=== PATIENT | male | born 1965 | race Caucasian/White ===

== ENCOUNTER → 2020-09-15 | Day surgery (SDC) | payer OTHER ==
[~2020-09-15] VITALS: Ht 185.4 cm; Wt 95.2 kg
[~2020-09-15] MED LIST: ASPIRIN EC81 MG PO; CARVEDILOL3.125 MG PO; LOPRESSOR25 MG PO; LORAZEPAM 0.5M0.5 MG PO; MVI; PROTONIX 40MG T40 MG PO; ZANTAC150 MG PO; ZOFRAN4 MG PO
[2020-09-15 06:46] LABS: HCT 47.4 % (42.0-52.0); HGB 16.8 g/dl (13.2-18.0); MCH 31.7 pg (25.0-31.0); MCHC 35.4 g/dL (32.0-36.0); MCV 89.4 fL (78.0-100.0); MPV 10.3 fL (6.0-9.5); RBC 5.3 M/uL (4.70-6.00); WBC 5.3 K/uL (4.0-10.5)
[2020-09-15 09:50] LABS: BUN/CREAT RATIO (CALC) 18.3 RATIO; CREATININE 0.93 mg/dL (0.67-1.17); POTASSIUM 4.1 mmol/L (3.5-5.1)
== END | disposition home or self-care (01) ==
LOC: FAS 06:10
PROVIDERS: Anesthesiology; Legal Medicine
DX: M67.441 Ganglion, right hand (principal); I10 Essential (primary) hypertension; K21.9 Gastro-esophageal reflux disease without esophagitis; F41.9 Anxiety disorder, unspecified; Z79.899 Other long term (current) drug therapy
CPT/HCPCS: 36415; 80048; J0690; J2250; J2704; J2795; J3010; J7120

== ENCOUNTER 2021-06-08 22:27 | Emergency (ER) | payer OTHER ==
[2021-06-08 23:49] LABS: EOSINOPHIL 0.3 % (0-5); HCT 48.1 % (42.0-52.0); HGB 16.9 g/dl (13.2-18.0); LYMPHOCYTE 51.8 % (15-48); MCH 31.9 pg (25.0-31.0); MCHC 35.1 g/dL (32.0-36.0); MCV 90.8 fL (78.0-100.0); MPV 9.9 fL (6.0-9.5); NEUTROPHIL 31.2 % (41-80); NRBC 0; RDW 12.4 % (11.5-14.0); WBC 3.1 K/uL (4.0-10.5)
[2021-06-09 00:05] LABS: ALBUMIN 4.5 g/dL (3.4-5.0); BILIRUBIN - TOTAL 0.7 mg/dL (0.2-1.0); BUN/CREAT RATIO (CALC) 3.5 RATIO; CREATININE 0.85 mg/dL (0.67-1.17); GLOBULIN (CALCULATION) 3.1 g/dL; PLT 89 K/uL (150-400); POTASSIUM 3.4 mmol/L (3.5-5.1); TOTAL PROTEIN 7.6 g/dL (6.4-8.2)
[2021-06-09 00:57] LABS: AMPHETAMINES NEGATIVE (NEGATIVE); BARBITURATES NEGATIVE (NEGATIVE); ECSTASY (MDMA) NEGATIVE (NEGATIVE); MARIJUANA (THC) NEGATIVE (NEGATIVE); METHADONE NEGATIVE (NEGATIVE); OPIATES NEGATIVE (NEGATIVE); OXYCODONE NEGATIVE (NEGATIVE)
[2021-06-09] MEDS ORDERED: LIBRIUM25 MG PO (09:12)
[2021-06-09] MEDS ORDERED: B-1100 MG PO (09:12)
== END 2021-06-09 10:43 | disposition home or self-care (01) ==
LOC: FER 22:27
PROVIDERS: Emergency Medicine
DX: S01.511A Laceration without foreign body of lip, initial encounter (principal); S00.83XA Contusion of other part of head, initial encounter; F10.129 Alcohol abuse with intoxication, unspecified; I10 Essential (primary) hypertension; Z20.822 Contact with and (suspected) exposure to COVID-19; W19.XXXA Unspecified fall, initial encounter; Y92.524 Gas station as the place of occurrence of the external cause; Y90.8 Blood alcohol level of 240 mg/100 ml or more
CPT/HCPCS: 36415; 70450; 72125; 80053; 80305; 85025; 90471; 90715; 96372; 96374; G0480; J2405; J2560; J7030; U0002